=== PATIENT | male | born 1965 | race Caucasian/White ===

== ENCOUNTER 2023-06-30 09:04 | Observation (INO) | payer BC, SELFPAY ==
[2023-06-30] VITALS (10 sets, daily range): BP systolic 147–198; BP diastolic 100–118; PULSE 64–95; RESP 14–20; TEMP 36.3–36.7; O2SAT 94–100; BMI 27.1; BMI 27.6; BMI 29.7
--- NOTE | 2023-06-30 09:06 | CT_ITS ---
STUDY: CT HEAD STROKE PROTOCOL W/O CONTRAST INJECTION REASON FOR EXAM: Male, 57 years old. Neuro deficit, acute, stroke suspected RADIATION DOSAGE (If Supplied By Facility): CTDIvol = ( 44.99 ) mGy, DLP = ( 812.98 ) mGycm TECHNIQUE: Transaxial CT imaging of the brain was performed without administration of intravenous contrast material. Individualized dose optimization techniques were used for this CT. COMPARISON: No relevant priors. FINDINGS: Normal soft tissue structures. Normal calvarium. Normal size ventricles and extra-axial spaces for the patient''s age. Normal white matter tracts of the cerebral hemispheres. Normal basal ganglia and thalami. Normal brainstem. Normal cerebellum. There is no intracranial hemorrhage. There are no findings of an acute ischemic infarction. Normal visualized paranasal sinuses. ASPECT score: 10 CT/STROKE Brain/Head without Cont IMPRESSION: Normal unenhanced CT scan of the brain. N.B. : The above Results were Read Back by Mihir Whitfield MD to Dr Yosef MD, and understanding confirmed on 06/30/2023 09:23:52 (ET). Electronically Signed: Mihir Whitfield MD at 9:25 EST ,
--- NOTE | 2023-06-30 09:06 | CT_ITS ---
We are attempting to reach an attending provider to discuss findings. An addendum with communication details will be sent when the communication is complete. STUDY: CTA HEAD AND NECK WITH CONTRAST REASON FOR EXAM: Male, 57 years old. Neuro deficit, acute, stroke suspected RADIATION DOSAGE (If Supplied By Facility): CTDIvol = ( 19.91 ) mGy, DLP = ( 719.54 ) mGycm TECHNIQUE: CT angiography was performed with a multi-detector CT scanner. Data acquisition was obtained from the skull base through the vertex following intravenous administration of IV 100mL Isovue-[id number]. MIP images were reconstructed from the axial data set. Post-processing of the angiographic images was performed, with multiplanar reformation and 3D reconstruction. Individualized dose optimization techniques were used for this CT. COMPARISON: No relevant priors. FINDINGS: Normal bilateral petrous carotid arteries. There is calcified plaque formation of the right cavernous carotid artery, without a cross-sectional luminal stenosis. There is calcified plaque formation of the left cavernous carotid artery, without a cross-sectional luminal stenosis. Normal right A1 segments of the anterior cerebral artery. Normal left A1 segments of the anterior cerebral artery. Normal intact anterior communicating artery (ACOM). Normal bilateral A2 segments of the anterior cerebral arteries. Normal right M1 and M2 segments of the middle cerebral arteries, with a normal M1 bifurcation. Normal left M1 and M2 segments of the middle cerebral arteries, with a normal M1 bifurcation. There is a persistent origin of the right posterior cerebral artery with absence of the posterior communicating artery (PCOM). Normal left posterior communicating artery (PCOM). Normal bilateral vertebral arteries. Normal basilar artery with a normal basilar bifurcation. The visualized bilateral superior cerebellar (SCA) arteries are normal. Normal bilateral P1, P2 and visualized P3 segments of the posterior cerebral arteries. There is no demonstrated aneurysm of the [place]. There is no demonstrated abnormality of the visualized brain. AORTIC ARCH: Normal visualized aortic arch. Normal origins of the brachiocephalic, left common carotid, and left subclavian arteries. RIGHT CAROTID ARTERIES: Normal right common carotid artery (CCA). Normal right common carotid bulb. Normal origin of the right internal carotid (ICA) artery without a hemodynamically significant stenosis. Normal visualized cervical portion of the right internal carotid artery. Normal origin of the right external carotid artery (ECA). LEFT CAROTID ARTERIES: Normal left common carotid artery (CCA). Normal left common carotid bulb. Normal origin of the left internal carotid (ICA) artery without a hemodynamically significant stenosis. Normal visualized cervical portion of the left internal carotid artery. Normal origin of the left external carotid artery (ECA). VERTEBRAL ARTERIES: There is enhancement within the bilateral vertebral arteries with a small left vertebral artery, and a dominant right vertebral artery. CT/STROKE CTA Head AND Neck W/Con IMPRESSION: Normal CTA Head and neck with contrast. Small left vertebral artery. Electronically Signed: Mihir Whitfield MD at 9:39 EST ,
--- NOTE | 2023-06-30 09:06 | RAD_ITS ---
STUDY: X-RAY CHEST REASON FOR EXAM: Male, 57 years old. Neuro deficit, acute, stroke suspected TECHNIQUE: Single AP portable view of the chest. COMPARISON: None. FINDINGS: EKG electrodes are seen. There is elevation of the right hemidiaphragm with mild increased markings at the right lung base suggestive of atelectasis. There is no demonstrated pleural abnormality. Normal size heart. Normal mediastinum and amrik. Normal visualized pulmonary arteries. Normal visualized aortic arch and descending thoracic aorta. Normal visualized thoracic spine. Normal visualized ribs, clavicles, and shoulders. There is no demonstrated abnormality of the visualized soft tissue structures of the upper abdomen. RAD/Chest 1 View IMPRESSION: Elevation of the right hemidiaphragm with mild increased markings suggestive of atelectasis. Electronically Signed: Mihir Whitfield MD at 10:07 [facility] ,
--- NOTE | 2023-06-30 09:06 | EKG12_ITS ---
Test Reason : STROKE Blood Pressure : / mmHG Vent. Rate : 086 BPM Atrial Rate : 086 BPM P-R Int : 168 ms QRS Dur : 086 ms QT Int : 398 ms P-R-T Axes : 038 -42 005 degrees QTc Int : 476 ms Sinus rhythm with Premature ventricular complexes or Fusion complexes Left axis deviation Minimal voltage criteria for LVH, may be normal variant ( R in aVL ) Abnormal ECG Confirmed by Arpit Luna ([id number]), food expeditor REESE SINGH ([id number]) on 07/01/2023 9:29:13 AM Referred By: Confirmed By:Arpit Luna
--- NOTE | 2023-06-30 09:15 | ED.RN ---
NO OLD EKG
[2023-06-30 09:19] LABS: Absolute Lymphocyte Count 1.95 X10^3/uL (0.83-4.51); Absolute Neutrophil Count 6.7 X10^3/uL (2.0-7.7); Basophil# 0.08 X10^3/uL; Basophil% 0.8 % (0-1); Eosinophil# 0.06 X10^3/uL; Eosinophils% 0.6 % (0-5); Hematocrit 43.3 % (40-54); Hemoglobin 14.9 g/dL (13.0-16.5); Lymphocyte # 1.95 X10^3/ul (0.83-4.51); Lymphocyte % 20.6 % (19-41); Mean Corp Hgb Conc 34.4 g/dL (32-36); Mean Corpuscular Hgb 29.6 pg (27.0-32.0); Mean Corpuscular Volume 85.9 fL (80-94); Mean Platelet Vol. 10.2 fl (6.2-12.0); Monocyte# 0.65 X10^3/uL; Monocyte% 6.9 % (0-10); NRBC Flagged by Analyzer 0 % (0-5); Neutrophil # 6.68 X10^3/uL (2.7-7.7); Neutrophil % 70.6 % (47-70); Platelet Count 223 K/mm3 (150-450); RBC Distribution Width CV 13.3 % (11.6-14.6); RBC Distribution Width SD 41.3 fl (35.1-43.9); Red Blood Count 5.04 M/mm3 (4.6-6.2); White Blood Count 9.5 K/mm3 (4.4-11.0)
[2023-06-30 09:33] LABS: Partial Thromboplast Time 31.5 Seconds (24.1-36.2)
--- NOTE | 2023-06-30 09:36 | EDS_ITS ---
HPI History of Present Illness Chief Complaint: Stroke Alert Detail of Chief Complaint: Strokelike symptoms at 0645. Informant: patient Onset/Context/Timing Onset: Today (0645) Context: Sudden Onset Timing: Continuous Quality and Location: Positive for Left Face Parasthesia Current Severity: Mild Maximum Severity: Mild Worsened by: Nothing Relieved by: Nothing Associated Symptoms Associated Symptoms: Negative for Headache, Nausea, Vomiting or Chest Pain Narrative Narrative: Patient is a 57-year-old male with history of hypertension who presents with numbness left side. Started at 0645.'s been continuous. Patient denies headache, visual, ocular auditory symptoms. Patient has trouble speech or swallowing. Patient did report dizziness which is resolved. It is not described as a spinning sensation or his balance being off. He denied chest pain, shortness of breath. Denies dyspnea or dyspnea on exertion. He denies nausea or vomiting. Prior similar symptoms: No Recent Illness/Hospitalization: [facility] Medical History History of left heart catheterization HTN (hypertension) Home Medications esomeprazole magnesium 20 mg capsule,delayed release (Nexium) 20 mg PO DAILY 06/30/23 [History Last Taken 06/30/23] lisinopril 20 mg-hydrochlorothiazide 12.5 mg tablet 1 tab PO DAILY 06/30/23 [History Last Taken 06/30/23] Allergy/AdvReac Type Severity Reaction Status Date / Time No Known Allergies Allergy Verified 06/30/23 09:22 Social History Smoking Status: Former smoker ROS ROS ED Constitutional Constitutional ED: Denies chills, fever(s), subjective, sweats or weakness Eyes Eyes: Denies blurry vision, change in vision or diplopia ENT ENT ED: Denies ear pain, rhinorrhea or sore throat Cardiovascular Cardiovascular: Denies chest pain, palpitations, paroxysmal nocturnal dyspnea or racing heartbeat Respiratory/Chest Respiratory/Chest: Denies cough, dyspnea, dyspnea on exertion or paroxysmal nocturnal dyspnea Gastrointestinal Gastrointestinal: Denies abdominal pain, constipation, diarrhea, nausea or vomiting Genitourinary Genitourinary ED: Denies dysuria, hematuria or urinary frequency Musculoskeletal Musculoskeletal: Denies arthralgias, back pain, myalgias or neck pain Integumentary Denies rash Neurologic Neurologic: Reports paresthesias; Denies headache(s) or weakness Endocrine Endocrinology: Denies polydipsia, polyphagia or polyuria Hematologic/Lymphatic Hematologic/Lymphatic: Denies easy bleeding or easy bruising EXAM Physical Exam Const Vital Signs: 06/30/23 09:07 06/30/23 09:19 06/30/23 09:23 Temperature 98 F Temperature Source Temporal Pulse Rate 68 95 Respiratory Rate 14 18 Blood Pressure 176/100 H 198/118 H Blood Pressure Mean 125 144 Pulse Ox 100 99 97 Oxygen Delivery Method Room Air Room Air Room Air Positive well nourished and well developed General Appearance ED: well developed and NAD HEENT Reports moist mucous membranes Nose: other Other Details: Normal Eyes PERRL and EOMs intact bilaterally General Eye ED: Negative for pale conjunctiva or scleral icterus Neck no lymphadenopathy, supple and no JVD Resp normal respiratory effort and clear to auscultation bilaterally Cardio no murmurs Rate: regular rate Rhythm: regular rhythm Heart Sounds: S1 normal GI normal to inspection, nondistended, normoactive bowel sounds, soft to palpation, non-tender, non-distended and no masses Auscultation: normoactive bowel sounds Back/Spine no CVA tenderness Extremity normal to inspection Neuro oriented x3, CN's II-XII intact bilaterally and no sensory deficits noted Neuro Narrative: There is no dysmetria. Gait was observed and normal. [place] Coma Scale: document GCS findings Spontaneous Obeys Commands Oriented 15 Sensorium / Orientation: alert Speech: speech normal Gait (Neuro): normal gait Motor Exam: strength 5/5 throughout Psych mental status grossly normal Skin no wounds General Skin Exam: Negative for jaundice Lesions: no lesions Rashes: no rashes NIHSS NIHSS Initial: 1a Level of Consciousness: 0 1b LOC Questions (Score 2 if aphasic/stupor): 0 1c LOC Commands (Only score 1st attempt): 0 2 Best Gaze (If aphasic, use reflexive mvmts.): 0 3 Visual: 0 4 Facial Palsy: 0 5 Motor Arm Right (UN = amputation/fusion): 0 5 Motor Arm Left: 0 6 Motor Leg Right: 0 6 Motor Leg Left: 0 7 Limb ataxia (Only + if out of proportion): 0 8 Sensory (Aphasia/stupor=0 or 1, coma=2): 0 9 Best Language: 0 10 Dysarthria (mute, coma=2, intubated=UN): 0 11 Extinction and Inattention (only scored if +): 0 Total Score: 0 MDM MDM MDM Narrative Medical decision making narrative: Stroke alert was called from triage. Patient was sent for CT CTA. Spoke with Dr. Moore neurologist at [facility]. He recommended aspirin statin and stroke workup. Differential diagnosis is cervical pathology versus neurologic i.e. stroke. History & Record Review Additional record(s) reviewed:: No prior records Lab Data Attestation: I reviewed the patient's lab results. Lab results narrative: CBC is unremarkable. Coags normal. Electrolyte panel is normal. Labs: Laboratory Results - last 24 hr 06/30/23 06/30/23 09:10 09:19 WBC 9.5 RBC 5.04 Hgb 14.9 Hct 43.3 MCV 85.9 MCH 29.6 MCHC 34.4 RDW Std Deviation 41.3 RDW Coeff of Raoul 13.3 Plt Count 223 MPV 10.2 Immature Gran % (Auto) 0.500 Neut % (Auto) 70.6 H Lymph % (Auto) 20.6 Johnston % (Auto) 6.9 Eos % (Auto) 0.6 Baso % (Auto) 0.8 Absolute Neuts (auto) 6.7 Absolute Lymphs (auto) 1.95 Nucleated RBC % 0 PT 15.4 H INR 1.2 APTT 31.5 Sodium 141 Potassium 3.2 L Chloride 108 H Carbon Dioxide 26.0 Anion Gap 7 BUN 16 Creatinine 0.97 Estim Creat Clear Calc 90.00 Est GFR (MDRD) Af Amer 101 Est GFR (MDRD) Non-Af 84 BUN/Creatinine Ratio 16.5 Glucose 106 Calcium 9.4 Troponin I High Sens 6 POC Glucose 97 Radiography Diagnostic Testing: Clinical Impression(s) from Imaging Studies Brain CT 06/30/23 09:06 IMPRESSION: Normal unenhanced CT scan of the brain. N.B. : The above Results were Read Back by Mihir Whitfield MD to Dr Yosef MD, and understanding confirmed on 06/30/2023 09:23:52 (ET). Electronically Signed: Mihir Whitfield MD at 9:25 EST , ADDENDUM: 06/30/2332 IMPRESSION: Normal unenhanced CT scan of the brain. N.B. : The above Results were Read Back by Mihir Wihtfield MD to Dr Yosef MD, and understanding confirmed on 06/30/2023 09:23:52 (ET). Electronically Signed: Mihir Whitfield MD at 9:25 EST , Head/Neck CTA 06/30/23 09:06 IMPRESSION: Normal CTA Head and neck with contrast. Small left vertebral artery. Electronically Signed: Mihir Whitfield MD at 9:39 EST , Management Discussion w/another healthcare provider: Hospitalist (Hospitalist requested MRI to be ordered through the emergency department to expedite patient's care and disposition.) and Inspector Line (Dr. Moore the [facility] neurologist recommended aspirin, statin and admission for TIA MRI etc.) Discharge Plan Triage Chief Complaint: Stroke Alert ED Provider: Zhou Arora Dx/Rx/DC Orders Clinical Impression: Paresthesia of left upper extremity, High blood pressure Prescriptions: No Action lisinopril-hydrochlorothiazide 20-12.5 mg tablet 1 tab PO DAILY esomeprazole magnesium [Nexium] 20 mg capsule,delayed release(DR/EC) 20 mg PO DAILY Primary Care Provider: STACI MIKE Referrals: STACI MIKE [Other] Disposition Disposition: Acute Care Hospital [facility]
[2023-06-30 09:37] LABS: Bedside Glucose 97 mg/dL (74-106)
[2023-06-30 09:38] LABS: Anion Gap 7 (5-15); BUN 16 mg/dL (7-18); BUN/Creat Ratio 16.5 RATIO (10-20); Calcium,Total 9.4 mg/dL (8.5-10.1); Chloride 108 mmol/L (98-107); Creatinine, Serum 0.97 mg/dL (0.70-1.30); EST Glomerular Filtration Rate 84 mL/min (>60); Est Glom Filt Rate - Afr Amer 101 mL/min (>60); Glucose 106 mg/dL (74-106); International Normalized Ratio 1.2; Potassium 3.2 mmol/L (3.5-5.1); Prothrombin Time (Protime)PT. 15.4 SECONDS (11.7-14.9); Sodium Level 141 mmol/L (136-145); Troponin-I HS 6 pg/mL (3.0-78.0)
--- NOTE | 2023-06-30 10:00 | MRI_ITS ---
EXAM: MR HEAD WITHOUT INTRAVENOUS CONTRAST CLINICAL INDICATION: Numbness left side, stroke workup TECHNIQUE: Multiplanar and multisequence MR images of the brain were obtained without intravenous contrast. COMPARISON: No relevant prior studies available. FINDINGS: BRAIN AND EXTRA-AXIAL SPACES: Increased T2 signal intensity within the cerebral white matter suggestive of chronic microvascular change. No intra- or extra-axial hemorrhage. No evidence of acute infarct. No intracranial mass or mass effect. There is preservation of the [place]/white matter interface. Posterior fossa structures are unremarkable. Ventricles are appropriate for age. No hydrocephalus. Basal cisterns are patent. SELLA: Normal. Normal sella turcica, pituitary gland, infundibular stalk, optic chiasm and hypothalamus. AUDITORY SYSTEM: Normal. The internal auditory canals are patent. BONES/JOINTS: Intact calvarium. SINUSES: Unremarkable as visualized. Clear. MASTOID AIR CELLS: Unremarkable as visualized. Clear. ORBITS: Unremarkable as visualized. Both globes, extraocular muscles, optic nerves and retrobulbar fat appear unremarkable. VASCULATURE: Unremarkable as visualized. Normal flow voids in the major intracranial circulation. MRI/Brain without Contrast IMPRESSION: 1. No acute intracranial abnormality. 2. Chronic microvascular changes. Electronically Signed: Rc Shah MD at 16:05 EST ,
[2023-06-30] MEDS: Aspirin 325 MG Tablet PO (10:09)
--- NOTE | 2023-06-30 10:59 | ECHOD_ITS ---
Reason For Study: TIA/CVA Procedure This was a 2D Doppler, Color Flow transthoracic echocardiogram. Exam performed portable in patient room. Left Ventricle Normal LV size. The estimated ejection fraction is 70 %. No evidence for diastolic dysfunction. No regional wall motion abnormalities noted. Right Ventricle Normal size and thickness. Normal systolic function. Atria Normal left atrium. Normal right atrium. No doppler evidence for ASD. Bubble contrast study negative for right to left interatrial shunt. Mitral Valve There is no mitral valve stenosis. No mitral valve insufficiency. Tricuspid Valve There is no tricuspid stenosis. Trivial tricuspid valve insufficiency. Pulmonary artery systolic pressure is 30 mmHg. Aortic Valve Trisinus/trileaflet aortic valve. There is no aortic stenosis. Trivial aortic valve insufficiency. Pulmonic Valve There is no pulmonic valvular stenosis. No pulmonic valve insufficiency. Great Vessels Normal aortic root. Pericardium/Pleural No pericardial effusion. Medication Performed a rapid injection of agitated mix of 9 cc saline and 1cc air to assess for atrial septal defect. MMode/2D Measurements & Calculations LVIDd: 4.3 cm IVSd: 1.1 cm Ao root diam: 3.5 cm LVIDs: 2.5 cm LVPWd: 0.96 cm RVDd: 2.8 cm FS: 42.3 % LAV(MOD-bp): 33.7 ml LVAd ap4: 22.9 cm2 SV(MOD-sp4): 34.2 ml LAV(MOD-bp) Indexed: 16.7 ml/m2 LVLd ap4: 7.9 cm LAV(MOD-sp2): 45.3 ml EDV(MOD-sp4): 53.7 ml LAV(MOD-sp4): 25.8 ml EDV(sp4-el): 56.3 ml LVAs ap4: 12.2 cm2 LVLs ap4: 6.6 cm ESV(MOD-sp4): 19.5 ml ESV(sp4-el): 19.1 ml EF(MOD-sp4): 63.7 % EF(sp4-el): 66.0 % SV(sp4-el): 37.1 ml LA A4 area: 12.6 cm2 LA dimension(2D): 3.4 cm RA A4 area: 6.4 cm2 TAPSE: 2.5 cm Time Measurements MV dec time: 0.27 sec Doppler Measurements & Calculations MV E max jose luis: 55.9 cm/sec Lat Peak E' Jose Luis: 7.9 cm/sec Med Peak E' Jose Luis: 9.2 cm/sec MV A max jose luis: 77.0 cm/sec E/E' lat: 7.0 E/E' med: 6.1 MV E/A: 0.73 MV dec slope: 203.3 cm/sec2 Ao V2 max: 146.3 cm/sec LV V1 max: 115.9 cm/sec Ao max P.6 mmHg LV V1 max P.4 mmHg Ao V2 mean: 119.8 cm/sec Ao mean P.9 mmHg Ao V2 VTI: 34.2 cm PA V2 max: 69.8 cm/sec TR max jose luis: 245.5 cm/sec TR max P.1 mmHg ECHO/Echo Complete Interpretation Summary The estimated ejection fraction is 70 %. No evidence for diastolic dysfunction. Trivial aortic valve insufficiency. There appears to be multiple cystic lesions in the liver. Consider further work up if clinically indicated Ordering Physician: Scott Bryant Performed By: Elenita Corral, KELLY, RVT
--- NOTE | 2023-06-30 11:23 | NURSING ---
VM left for (Stefania) about patient being admitted to PCU 115 for Stroke/TIA r/o.
--- NOTE | 2023-06-30 11:56 | PCM.HP.STD ---
HPI - General General Date of Admission: 06/30/23 HPI Narrative SABAS SUN, is a 57 M who presents to the hospital with symptoms concerning for stroke, he had left-sided numbness and tingling in his right upper extremity which appears to have resolved and his NIH during the stroke alert was 0. No TNK was recommended by neurology. CTA of the head and neck was unremarkable. He is never had symptoms like this before. Of note on evaluation in the ER his systolic pressures was 198 will allow for permissive hypertension. He denies any chest pain and troponin was unremarkable. [facility] Medical History GERD (gastroesophageal reflux disease) History of left heart catheterization HTN (hypertension) Home Medications esomeprazole magnesium 20 mg capsule,delayed release (Nexium) 20 mg PO DAILY 06/30/23 [History Last Taken 06/30/23] lisinopril 20 mg-hydrochlorothiazide 12.5 mg tablet 1 tab PO DAILY 06/30/23 [History Last Taken 06/30/23] Allergy/AdvReac Type Severity Reaction Status Date / Time No Known Allergies Allergy Verified 06/30/23 09:22 Family History (Updated 06/30/23 @ 16:[address] Scott Bryant MD) Other Heart disease no surgical history Social History Smoking Status: Former smoker ROS Constitutional Constitutional: Denies chills, fatigue, fever(s) or malaise Eyes Eyes: Denies blurry vision ENT HEENT: Denies headache(s) or nasal discharge Cardiovascular Cardiovascular: Denies chest pain, dyspnea on exertion or syncope Respiratory/Chest Respiratory/Chest: Denies cough, shortness of breath at rest or shortness of breath with exertion Gastrointestinal Gastrointestinal: Denies constipation, diarrhea, nausea or vomiting Genitourinary Genitourinary: Denies dysuria Neurologic Neurologic: Reports dizziness, numbness and tingling; Denies focal weakness or tremor(s) Psychiatric Psychiatric: Denies anxiety or depression Vital Signs Vital Signs Vital Signs: 06/30/23 09:07 06/30/23 09:19 06/30/23 09:23 Temperature 98 F Temperature Source Temporal Pulse Rate 68 95 Respiratory Rate 14 18 Blood Pressure 176/100 H 198/118 H Blood Pressure [BP] Blood Pressure Mean 125 144 Blood Pressure Mean [BP] Blood Pressure Source Blood Pressure Source [BP] Blood Pressure Position Blood Pressure Position [BP] Blood Pressure Location Blood Pressure Location [BP] Pulse Ox 100 99 97 Oxygen Delivery Method Room Air Room Air Room Air 06/30/23 09:53 06/30/23 10:23 06/30/23 10:38 Temperature 97.4 F L Temperature Source Pulse Rate 68 66 78 Respiratory Rate 20 H 16 16 Blood Pressure 179/106 H 168/100 H 162/101 H Blood Pressure [BP] Blood Pressure Mean 130 122 121 Blood Pressure Mean [BP] Blood Pressure Source Blood Pressure Source [BP] Blood Pressure Position Blood Pressure Position [BP] Blood Pressure Location Blood Pressure Location [BP] Pulse Ox 97 97 99 Oxygen Delivery Method Room Air Room Air 06/30/23 10:52 06/30/23 10:52 Temperature 97.7 F L 97.7 F L Temperature Source Oral Oral Pulse Rate 65 65 Respiratory Rate 14 14 Blood Pressure 164/103 H Blood Pressure [BP] 164/103 H Blood Pressure Mean 123 Blood Pressure Mean [BP] 123 Blood Pressure Source Monitor Blood Pressure Source [BP] Monitor Blood Pressure Position Semi-Fowlers Blood Pressure Position [BP] Semi-Fowlers Blood Pressure Location Left Arm Blood Pressure Location [BP] Left Arm Pulse Ox 98 98 Oxygen Delivery Method Room Air Room Air Weight Weight: 195 lb 5.273 oz Body Mass Index (BMI) 29.7 Physical Exam Narrative General: Alert, Oriented x3, Cooperative, No apparent distress HEENT: Atraumatic, PERRLA, EOMI, Normocephalic Oral: Moist Mucosa Neck: Supple, No JVD Lungs: Clear to auscultation, Normal air movement, No rhonchi, No wheeze, No rales Cardiovascular: Regular rate, Regular Rhythm, Normal S1, Normal S2, No murmurs Abdomen: Soft, Non Tender, Non-Distended, No Hepato-splenomegaly Extremities: No edema, Capillary Refill Less than 3 Seconds Skin: No rashes, No breakdown Musculoskeletal: No Tenderness to Palpation of Joints or Extremities Neurological: No focal neurological deficits, Motor Exam 5/5 strength throughout, Sensory exam intact to light touch and pain Psych/Mental Status: Normal Affect, Appropriate Results Lab / Micro Data 06/30/23 09:10 06/30/23 09:10 Labs: Laboratory Results - last 24 hr 06/30/23 09:10: WBC 9.5, RBC 5.04, Hgb 14.9, Hct 43.3, MCV 85.9, MCH 29.6, MCHC 34.4, RDW Std Deviation 41.3, RDW Coeff of Raoul 13.3, Plt Count 223, MPV 10.2, Immature Gran % (Auto) 0.500, Neut % (Auto) 70.6 H, Lymph % (Auto) 20.6, [place] % (Auto) 6.9, Eos % (Auto) 0.6, Baso % (Auto) 0.8, Absolute Neuts (auto) 6.7, Absolute Lymphs (auto) 1.95, Nucleated RBC % 0, PT 15.4 H, INR 1.2, APTT 31.5, Sodium 141, Potassium 3.2 L, Chloride 108 H, Carbon Dioxide 26.0, Anion Gap 7, BUN 16, Creatinine 0.97, Estim Creat Clear Calc 90.00, Est GFR (MDRD) Af Amer 101, Est GFR (MDRD) Non-Af 84, BUN/Creatinine Ratio 16.5, Glucose 106, Calcium 9.4, Troponin I High Sens 6 06/30/23 09:19: POC Glucose 97 Imaging Radiology Impression Brain CT 06/30/23 09:06 IMPRESSION: Normal unenhanced CT scan of the brain. N.B. : The above Results were Read Back by Mihir Whitfield MD to Dr Yosef MD, and understanding confirmed on 06/30/2023 09:23:52 (ET). Electronically Signed: Mihir Whitfield MD at 9:25 EST , ADDENDUM: 06/30/23 0932 IMPRESSION: Normal unenhanced CT scan of the brain. N.B. : The above Results were Read Back by Mihir Whitfield MD to Dr Yosef MD, and understanding confirmed on 06/30/2023 09:23:52 (ET). Electronically Signed: Mihir Whitfield MD at 9:25 EST , Chest X-Ray 06/30/23 09:06 IMPRESSION: Elevation of the right hemidiaphragm with mild increased markings suggestive of atelectasis. Electronically Signed: Mihir Whitfield MD at 10:07 EST , Head/Neck CTA 06/30/23 09:06 IMPRESSION: Normal CTA Head and neck with contrast. Small left vertebral artery. Electronically Signed: Mihir Whitfield MD at 9:39 EST , ADDENDUM: 06/30/23 1008 IMPRESSION: Normal CTA Head and neck with contrast. Small left vertebral artery. N.B. : The above Results were Read Back by Mihir Whitfield MD to Zhou Arora MD, and understanding confirmed on 06/30/2023 10:01:47 (ET). Electronically Signed: Mihir Whitfield MD at 9:39 EST , Assessment & Plan Assessment/Plan (1) Paresthesia of left upper extremity: PLAN: Plan 1. Paresthesia left upper extremity ? Unclear if this is TIA or CVA ? Will proceed with an MRI ? CT of the head and neck was unremarkable ? Continue with Lipitor and aspirin ? Allow for permissive hypertension and place him on as needed labetalol 2. Hypertension ? Will hold his home medications ? He is on as needed medications per stroke protocol ? We will monitor make adjustments as necessary 3. GERD ? Stable ? Continue with PPI DVT: Ambulation 75 minutes was spent on direct patient care, including documentation as well as chart review and collaboration with colleagues Charges/Coding Visit Charges Inpatient E&M: 20597 Init Hosp L3
[2023-06-30] MEDS: Atorvastatin Calcium 80 MG Tablet PO (21:13)
[2023-07-01 03:14] VITALS: BP 150/94; PULSE 68; RESP 14; TEMP 36.7; O2SAT 98
[2023-07-01] MEDS: Acetaminophen 325 MG Tablet 650 MG PO (04:11)
[2023-07-01 08:03] LABS: Absolute Lymphocyte Count 1.47 X10^3/uL (0.83-4.51); Absolute Neutrophil Count 4.3 X10^3/uL (2.0-7.7); Basophil# 0.05 X10^3/uL; Basophil% 0.8 % (0-1); Eosinophil# 0.11 X10^3/uL; Eosinophils% 1.7 % (0-5); Hematocrit 42.5 % (40-54); Hemoglobin 14.5 g/dL (13.0-16.5); Lymphocyte # 1.47 X10^3/ul (0.83-4.51); Lymphocyte % 23.2 % (19-41); Mean Corp Hgb Conc 34.1 g/dL (32-36); Mean Corpuscular Hgb 29.8 pg (27.0-32.0); Mean Corpuscular Volume 87.3 fL (80-94); Mean Platelet Vol. 10.6 fl (6.2-12.0); Monocyte# 0.36 X10^3/uL; Monocyte% 5.7 % (0-10); NRBC Flagged by Analyzer 0 % (0-5); Neutrophil # 4.32 X10^3/uL (2.7-7.7); Neutrophil % 68.3 % (47-70); Platelet Count 199 K/mm3 (150-450); RBC Distribution Width CV 13.4 % (11.6-14.6); RBC Distribution Width SD 42.7 fl (35.1-43.9); Red Blood Count 4.87 M/mm3 (4.6-6.2); White Blood Count 6.3 K/mm3 (4.4-11.0)
[2023-07-01 08:04] VITALS: O2SAT 96
[2023-07-01 08:20] VITALS: BP 143/94; PULSE 69; RESP 16; TEMP 36.5; O2SAT 95
[2023-07-01] MEDS: Pantoprazole Sodium 20 MG Tablet PO (08:28)
[2023-07-01] MEDS: Aspirin 81 MG TAB.CHEW PO (08:28)
[2023-07-01 08:51] LABS: Anion Gap 5 (5-15); BUN 17 mg/dL (7-18); BUN/Creat Ratio 16.8 RATIO (10-20); Calcium,Total 9.5 mg/dL (8.5-10.1); Chloride 106 mmol/L (98-107); Cholesterol 149 mg/dL (200); Creatinine, Serum 1.01 mg/dL (0.70-1.30); EST Glomerular Filtration Rate 80 mL/min (>60); Est Glom Filt Rate - Afr Amer 97 mL/min (>60); Estimated Creatinine Clearance 85.19 ml/min; Glucose 129 mg/dL (74-106); High Density Lipoprotein 41 mg/dL; Potassium 3.2 mmol/L (3.5-5.1); Sodium Level 139 mmol/L (136-145); Triglycerides 75 mg/dL; Very Low Density Lipoprotein 15 mg/dL (5-40)
--- NOTE | 2023-07-01 12:02 | DCINST_ITS ---
Discharge Instructions Diet Discharge Diet: Low fat / Low cholesterol Activity Discharge Activity: Return to Normal Activity Dressing / Incision Call your doctor if you observe: Fever of 101 or Higher, Shortness of breath, Dizziness, Fainting spells, Swelling in the ankles, Chest pain and Increased palpitations (irregular heartbeat) Follow Up Care Test Results: Test results from this visit will be discussed in further detail at your follow- up appointment, if applicable. Discharge Plan Admission Admit Date/Time: 06/30/23 09:59 Attending Provider: Scott Bryant Primary Care Provider: STACI MIKE Discharge Orders/Prescriptions Prescriptions: New atorvastatin 80 mg Tablet 80 mg PO QHS 30 Days Qty: 30 0RF aspirin 81 mg Tablet,Chewable 81 mg PO BREAKFAST 30 Days Qty: 30 0RF Continued lisinopril-hydrochlorothiazide 20-12.5 mg tablet 1 tab PO DAILY esomeprazole magnesium [Nexium] 20 mg capsule,delayed release(DR/EC) 20 mg PO DAILY Referrals / Follow Up: STACI MIKE [Other] STACI MIKE [Other] Disposition Disposition (needs filled in before D/C Order can be placed): Home, Self Care
--- NOTE | 2023-07-01 12:21 | PHA.DC.MC.R ---
Pharmacy [facility] has performed discharge medication reconciliation and counseling for this patient. Patient requested meds to beds, Rx student called retail and requested delivery. 1. ASPIRIN 81MG PO BREAKFAST 2. ATORVASTATIN 80MG PO QHS The patient's discharge medication list was reviewed for discrepancies and discrepancies were resolved. The patient was counseled on the following discharge medications and changes in medications for homegoing were reviewed. The Reason for Use, instructions for use, and potential side effects were reviewed for all new medications. The patient's questions regarding all of their medications were answered. The patient was able to verbally demonstrate an understanding of their discharge medications. Patient counseled by hospital pharmacy directorRasheed. Medications at Discharge Home Medications esomeprazole magnesium 20 mg capsule,delayed release (Nexium) 20 mg PO DAILY 06/30/23 lisinopril 20 mg-hydrochlorothiazide 12.5 mg tablet 1 tab PO DAILY 06/30/23 aspirin 81 mg chewable tablet 81 mg PO BREAKFAST 30 days #30 tabs 07/01/23 atorvastatin 80 mg tablet 80 mg PO QHS 30 days #30 tabs 07/01/23
--- NOTE | 2023-07-01 12:29 | CASEMGMT ---
Patient has order to discharge. RN CM in to discuss needs at discharge. Patient denies needs or help at discharge. Patient had no further questions or concerns.
[2023-07-01 12:36] VITALS: BMI 29.7
[2023-07-01 12:59] VITALS: BP 142/96; PULSE 78; RESP 16; TEMP 36.6; O2SAT 96
--- NOTE | 2023-07-01 16:59 | DS.PCM_ITS ---
Providers Date of Admission: 06/30/23 Primary Care Physician: STACI MIKE Reason For Visit: TIA Diagnosis Discharge Diagnosis (1) Paresthesia of left upper extremity: Status: Acute Code(s): R20.2 - Paresthesia of skin Medications at Discharge Home Medications esomeprazole magnesium 20 mg capsule,delayed release (Nexium) 20 mg PO DAILY 06/30/23 lisinopril 20 mg-hydrochlorothiazide 12.5 mg tablet 1 tab PO DAILY 06/30/23 aspirin 81 mg chewable tablet 81 mg PO BREAKFAST 30 days #30 tabs 07/01/23 atorvastatin 80 mg tablet 80 mg PO QHS 30 days #30 tabs 07/01/23 Hospital Course Operations None Procedures 2-D Echocardiogram Summary of Care Provided Minutes Spent on Discharge: 34 Hospital Course: Per HPI: SABAS SUN, is a 57 M who presents to the hospital with symptoms concerning for stroke, he had left-sided numbness and tingling in his right upper extremity which appears to have resolved and his NIH during the stroke alert was 0. No TNK was recommended by neurology. CTA of the head and neck was unremarkable. He is never had symptoms like this before. Of note on evaluation in the ER his systolic pressures was 198 will allow for permissive hypertension. He denies any chest pain and troponin was unremarkable. Hospital course: 1. Left arm paresthesias/HTN?57-year-old male presented to the hospital significant numbness and tingling in his left arm with no chest pain and normal troponins and a nonischemic EKG. There is also some dizziness so there is a concern for possible stroke. On admission his NIH was 0 and MRI was unremarkable. CTA of the head and neck did not show any large vessel occlusion but he did have an echo on the day of discharge which did not show any abnormality from a cardiac standpoint however did note multiple cystic lesions in his liver which she states are known and has been monitored by his outpatient physician with ultrasounds twice a year for couple years and since there has been no change in the size of his cysts this has been discontinued as well. Given the microvascular changes seen on the MRI we will continue with aspirin and statin on discharge I do recommend that he follow-up with his PCP and in 3 to 5 days for outpatient monitoring and lab work. Discussed with him the plan for discharge today he expressed understanding Edilmaan for going home and would like to go home today. Physical Exam Narrative General: Alert, Oriented x3, Cooperative, No apparent distress HEENT: Atraumatic, PERRLA, EOMI, Normocephalic Oral: Moist Mucosa Neck: Supple, No JVD Lungs: Clear to auscultation, Normal air movement, No rhonchi, No wheeze, No rales Cardiovascular: Regular rate, Regular Rhythm, Normal S1, Normal S2, No murmurs Abdomen: Soft, Non Tender, Non-Distended, No Hepato-splenomegaly Extremities: No edema, Capillary Refill Less than 3 Seconds Skin: No rashes, No breakdown Musculoskeletal: No Tenderness to Palpation of Joints or Extremities Neurological: No focal neurological deficits, Motor Exam 5/5 strength throughout, Sensory exam intact to light touch and pain Psych/Mental Status: Normal Affect, Appropriate Weight / BMI Weight Weight: 195 lb 5.273 oz Body Mass Index (BMI) 29.7 ABG / Lab / Microbiology Data 07/01/23 07:25 07/01/23 07:25 Laboratory: Laboratory Results - last 24 hr 07/01/23 07:25: WBC 6.3, RBC 4.87, Hgb 14.5, Hct 42.5, MCV 87.3, MCH 29.8, MCHC 34.1, RDW Std Deviation 42.7, RDW Coeff of Raoul 13.4, Plt Count 199, MPV 10.6, Immature Gran % (Auto) 0.300, Neut % (Auto) 68.3, Lymph % (Auto) 23.2, [place] % (Auto) 5.7, Eos % (Auto) 1.7, Baso % (Auto) 0.8, Absolute Neuts (auto) 4.3, Absolute Lymphs (auto) 1.47, Nucleated RBC % 0, Sodium 139, Potassium 3.2 L, Chloride 106, Carbon Dioxide 28.0, Anion Gap 5, BUN 17, Creatinine 1.01, Estim Creat Clear Calc 85.19, Est GFR (MDRD) Af Amer 97, Est GFR (MDRD) Non-Af 80, BUN /Creatinine Ratio 16.8, Glucose 129 H, Calcium 9.5, Triglycerides 75, Cholest rodolfo 149, LDL Cholesterol 93, VLDL Cholesterol 15, HDL Cholesterol 41 Radiography Diagnostic Testing: Radiology Impression Echocardiogram 06/30/23 10:59 Interpretation Summary The estimated ejection fraction is 70 %. No evidence for diastolic dysfunction. Trivial aortic valve insufficiency. There appears to be multiple cystic lesions in the liver. Consider further workup if clinically indicated Ordering Physician: Scott Bryant Performed By: Elenita Corral, KELLY, RVT D/C Instructions Discharge Diet: Low fat / Low cholesterol Call your doctor if you observe: Fever of 101 or Higher, Shortness of breath, Dizziness, Fainting spells, Swelling in the ankles, Chest pain and Increased palpitations (irregular heartbeat) Meaningful Use Info Meaningful Use Diagnoses (Choose all that apply): None applicable Discharge Plan Admission Admit Date/Time: 06/30/23 09:59 Attending Provider: Scott Bryant Primary Care Provider: STACI MIKE Discharge Orders/Prescriptions Prescriptions: New atorvastatin 80 mg Tablet 80 mg PO QHS 30 Days Qty: 30 0RF aspirin 81 mg Tablet,Chewable 81 mg PO BREAKFAST 30 Days Qty: 30 0RF Continued lisinopril-hydrochlorothiazide 20-12.5 mg tablet 1 tab PO DAILY esomeprazole magnesium [Nexium] 20 mg capsule,delayed release(DR/EC) 20 mg PO DAILY Referrals / Follow Up: STACI MIKE [Other] STACI MIKE [Other] Disposition Disposition (needs filled in before D/C Order can be placed): Home, Self Care
== END 2023-07-01 12:04 | disposition home or self-care (01) ==
LOC: ED 10:09 → PCU 10:32
PROVIDERS: Admitting Provider Family Medicine; Emergency Provider Emergency Medicine; Visit Provider Family Medicine
DX: R20.2 Paresthesia of skin (principal); Z87.891 Personal history of nicotine dependence; I10 Essential (primary) hypertension; Z79.899 Other long term (current) drug therapy; R42 Dizziness and giddiness; R47.9 Unspecified speech disturbances; R20.0 Anesthesia of skin; K21.9 Gastro-esophageal reflux disease without esophagitis
CPT/HCPCS: 36415; 70450; 70496; 70498; 70551; 71045; 80048; 80061; 82962; 84484; 85025; 85610; 85730; 93005; 93306; 94668; 94762; 97161; 97165; 99221; 99285; Q9967; A4216; G0378